=== PATIENT | male | born 1995 | race Caucasian/White ===

== ENCOUNTER 2017-03-25 11:20 | Emergency (ER) | payer BC ==
[2017-03-25 11:31] VITALS: BP 130/80
--- NOTE | 2017-03-25 12:14 | UC ---
Abdominal Pain Male HPI - HPI Summary HPI Summary: While sitting at rest 2 days ago, pt felt sudden "twinge" in L side (below ribs on axillary line). Since then has had discomfort with movement, feels a little tired. Denies fever, recent illness, trouble breathing, changes in bowel or appetite, or urinary symptoms. - History of Current Complaint Chief Complaint: UCBackPain Stated Complaint: L side pain Time Seen by Provider: 03/25/17 11:59 Hx Obtained From: Patient Onset/Duration: Sudden Onset Timing: Constant Severity Initially: Mild Severity Currently: Moderate Location: Discrete At: LUQ, Other - L side Radiates: No Character: Aching, Dull Aggravating Factor(s):: Movement, Deep Breaths Alleviating Factor(s): Rest Associated Signs And Symptoms: Negative: Fever, Cough, Blood in Stool, Urinary Symptoms - Allergies/Home Medications Allergies/Adverse Reactions: Allergies Allergy/AdvReac Type Severity Reaction Status Date / Time No Known Allergies Allergy Verified 03/25/17 11:31 Home Medications: Home Medications Lurasidone HCl [Latuda] 40 mg PO DAILY 03/25/17 [History Confirmed 03/25/17] lamoTRIgine TAB(*) [Lamictal TAB(*)] 150 mg PO DAILY 03/25/17 [History Confirmed 03/25/17] PMH/Surg Hx/FS Hx/Imm Hx Endocrine History Of: Denies: Diabetes, Thyroid Disease Cardiovascular History Of: Denies: Cardiac Disorders, Hypertension Respiratory History Of: Denies: COPD, Asthma GI/ History Of: Denies: Ulcer - Surgical History Surgical History: None - Family History Known Family History: Negative: Blood Disorder - Social History Occupation: Employed Full-time Alcohol Use: Daily Substance Use Type: None Smoking Status (MU): Light Every Day Tobacco Smoker Type: Cigarettes Amount Used/How Often: 1 cig./day Review of Systems Constitutional: Negative Skin: Negative Eyes: Negative ENT: Negative Respiratory: Negative Cardiovascular: Negative Gastrointestinal: Abdominal Pain Genitourinary: Negative Motor: Negative Neurovascular: Negative Musculoskeletal: Negative Neurological: Negative Psychological: Negative All Other Systems Reviewed And Are Negative: Yes Physical Exam Triage Information Reviewed: Yes Appearance: Well-Appearing, No Pain Distress, Well-Nourished Vital Signs: Initial Vital Signs Temp 97.3 F 03/25/17 11:27 Pulse 75 03/25/17 11:27 Resp 16 03/25/17 11:27 BP 130/80 03/25/17 11:27 Pulse Ox 98 03/25/17 11:27 Vital Signs Reviewed: Yes Eye Exam: Normal Eyes: Positive: Conjunctiva Clear ENT Exam: Normal ENT: Positive: Normal ENT inspection, Hearing grossly normal, Pharynx normal, TMs normal Dental Exam: Normal Neck exam: Normal Neck: Positive: Supple, Nontender, No Lymphadenopathy Respiratory Exam: Normal Respiratory: Positive: Chest non-tender, Lungs clear, Normal breath sounds, No respiratory distress, No accessory muscle use Cardiovascular Exam: Normal Cardiovascular: Positive: RRR, No Murmur Abdomen Description: Positive: CVA Tenderness (L) - tenderness below kidney and in LUQ with percussion. Negative: No Organomegaly - ? splenomegaly Bowel Sounds: Positive: Present Musculoskeletal Exam: Normal Neurological Exam: Normal Neurological: Positive: Alert Psychological Exam: Normal Skin Exam: Normal Abd Pain Male Course/Dx - Differential Dx/Clinical Impression Provider Diagnoses: musculoskeletal pain L flank. L kidney cyst Discharge - Discharge Plan Condition: Stable Disposition: HOME Patient Education Materials: Musculoskeletal Pain (ED), Kidney Cyst (ED) Referrals: Samantha Pleitez MD [Medical Doctor] - Additional Instructions: Though I do not see any worrisome cause for your pain, bloodwork is pending. Please discuss your kidney cyst with your primary care office next Friday. If you are worsening, please see them sooner. For pain, I recommend you use [id number] naproxen (aleve).
--- NOTE | 2017-03-25 12:46 | RAD ---
HISTORY: Left upper quadrant pain COMPARISONS: None TECHNIQUE: Multiple transverse and longitudinal ultrasound images were obtained of the left upper quadrant using grayscale and color Doppler imaging FINDINGS: The spleen is homogeneous in echotexture and normal in shape, size, and contour measuring 11.1 x 5.8 x 10.6 cm. Incidentally noted is a septated cyst of the midpole the left kidney measuring 1.6 x 1.7 x 1.6 m in size. IMPRESSION: 1. NORMAL SPLEEN. 2. COMPLICATED CYST OF THE MIDPOLE OF THE LEFT KIDNEY MEASURING 1.7 CM.. IF CLINICALLY INDICATED, THIS CAN BE FURTHER EVALUATED WITH CONTRAST ENHANCED PROTOCOL CT OR CONTRAST ENHANCED MRI OF THE ABDOMEN
[2017-03-25 13:10] LABS: EBV Response YES
[2017-03-25 16:13] LABS: Hematocrit 42 % (42-52); Hemoglobin 14.3 g/dl (14.0-18.0); Mean Corpuscular HGB Conc 34 g/dl (31-36); Mean Corpuscular Hemoglobin 29 pg (27-31); Mean Corpuscular Volume 86 fL (80-94); Mean Platelet Volume 9 um3 (7.4-10.4); Red Blood Count 4.92 10^6/ul (4.0-5.4); Red Cell Distribution Width 13 % (10.5-15); White Blood Count 7.9 10^3/ul (3.5-10.8)
[2017-03-25 16:34] LABS: Albumin 4.8 g/dL (3.2-5.2); BUN/Creatinine Ratio 12.4 (8-20); EGFR African American 124.5 (>60); EGFR Non-African American 96.8 (>60); Globulin 2.3 g/dL (2-4); Potassium 3.9 mmol/L (3.5-5.0); Total Bilirubin 0.5 mg/dL (0.2-1.0); Total Protein 7.1 g/dL (6.4-8.9)
[2017-03-25 16:38] LABS: Manual Entry Verification MD; Mono Internal Control QC Line Present
[2017-03-27 11:57] LABS: EBV Capsid Ag IgG Ab Positive (Negative); EBV Capsid Ag IgM Ab Negative (Negative)
== END 2017-03-25 12:58 | disposition home or self-care (01) ==
LOC: UCEAST 11:20
DX: M79.1 Myalgia (principal); N28.1 Cyst of kidney, acquired
CPT/HCPCS: 36415; 76705; 80053; 81003; 85025; 86308; 86664; 86665; 99211; G0463